=== PATIENT | female | born 1940 | race Caucasian/White ===

== ENCOUNTER 2018-09-26 05:17 | Day surgery (SDC) | payer OTHER ==
[2018-09-23 14:38] VITALS: BMI 17.7
[2018-09-26] MEDS ORDERED: IBUPROFEN 800 MG/8 ML IJ IVPB PRN (12:49)
--- NOTE | 2018-09-26 12:49 | HP ---
History & Physical Update - History History: No Change - Physical Physical: No Change - Assessment Assessment: No Change - Plan Plan: No Change (Agree with H&P from 09/23/18)
[2018-09-26] MEDS ORDERED: LIDOCAINE HCL/PF 2% SDV 5ML VIAL ONE (12:56)
[2018-09-26] MEDS ORDERED: MIDAZOLAM HCL 2 MG/2 ML SINGLE DOSE VIAL ONE ×2 (12:57)
[2018-09-26] MEDS ORDERED: PROPOFOL 20 ML ONE (12:57)
[2018-09-26] MEDS ORDERED: LACTATED RINGERS SOLUTION 1,000 ML IV SCH (13:00)
[2018-09-26] MEDS ORDERED: FLUMAZENIL 0.5 MG/5 ML VIAL ONE (13:31)
[2018-09-26] MEDS ORDERED: KETOROLAC TROMETHAMINE 30 MG/1 ML VIAL ONE ×2 (13:31)
--- NOTE | 2018-09-26 13:31 | OP ---
Operative Note - Note: Operative Date: 09/26/18 Pre-Operative Diagnosis: cervical polyp found on routine ultrasound. Operation: exam under anesthesia Findings: atrophic cervix, non palpable or visible Post-Operative Diagnosis: Same as Pre-op Surgeon: Johanne Palacio Anesthesiologist/DIGITAL ASSET SPECIALIST: Ghulam Rivas Anesthesia: MAC Specimens Removed: none Estimated Blood Loss (mls): 0 Operative Report Dictated: Yes
[2018-09-26] MEDS ORDERED: PROMETHAZINE HCL 25 MG/1 ML VIAL IVPUSH PRN (13:38)
[2018-09-26] MEDS ORDERED: oxyCODONE HCL 5 MG TABLET PO PRN (13:38)
[2018-09-26] MEDS ORDERED: ONDANSETRON 4 MG/2 ML VIAL IVPUSH PRN (13:38)
[2018-09-26 14:31] VITALS: TEMP 97.2
--- NOTE | 2018-09-26 15:18 | OP ---
DATE OF OPERATION: 09/26/2018 PREOPERATIVE DIAGNOSIS: Intracervical polyp found on routine ultrasound. POSTOPERATIVE DIAGNOSIS: Intracervical polyp found on routine ultrasound. PROCEDURE: Examination under anesthesia. FINDINGS: Findings included atrophic cervix flush with the vaginal wall, inability to perform procedure resulting in of the procedure. Sponge and instrument count correct. DISPOSITION: Stable to PACU. BRIEF HISTORY AND PROCEDURE: Patient is a 77-year-old female who had been seen in the office with a history of breast cancer, had routine pelvic ultrasound and found to have a cervical polyp. The patient had elected to undergo a hysteroscopic resection of the polyp. The patient signed consent for the procedure in the office and was admitted to [facility] on September 26, 2018. Consents were reconfirmed. The patient was taken back to the operating room, given MAC anesthesia, and placed in the dorsal lithotomy position. She was prepped and draped and a hard timeout was performed. A speculum was placed inside the vagina, and at the top of the vagina no distinctive cervix was appreciated. Upon palpation and further examination and attempts to locate the cervix, it appeared that the cervix was atrophic and feels with the vagina. At this point because it was deemed unsafe to proceed with the procedure, this procedure was aborted and the patient was awoken from anesthesia. Sponge and instrument counts reported to be correct. Patient tolerated the procedure well, went to recover in stable condition in the PACU after the procedure. ALEX GRAHAM DO /[id number]
[2018-09-27 07:58] VITALS: BP 120/70; PULSE 48
== END 2018-09-26 16:10 | disposition home or self-care (01) ==
LOC: JASU-SURG 05:17
PROVIDERS: ATTEND Obstetrics & Gynecology
PROC: 0UJD8ZZ Inspection of Uterus and Cervix, Via Natural or Artificial Opening Endoscopic (ICD-10-PCS; 2018-09-26)
PROC: 0UBC7ZX Excision of Cervix, Via Natural or Artificial Opening, Diagnostic (ICD-10-PCS; principal; 2018-09-26 12:30)
DX: N84.1 Polyp of cervix uteri (principal); N88.8 Other specified noninflammatory disorders of cervix uteri; Z53.8 Procedure and treatment not carried out for other reasons
CPT/HCPCS: 86850; 86900; 86901; 94760